=== PATIENT | female | born 2000 | race Caucasian/White ===

== ENCOUNTER 2022-08-14 12:17 | Emergency (ER) | payer BC, SELFPAY ==
--- NOTE | 2022-08-14 12:21 | ED.EYEPROB ---
HPI - Eye Problem General Chief complaint: Eye Problems Stated complaint: lt eye infection Time Seen by Provider: 08/14/22 12:21 Source: patient Mode of arrival: ambulatory Limitations: no limitations History of Present Illness HPI Narrative: Luis is a 22-year-old female patient presenting to clinic today with complaints of a possible left eye infection. She reports has swelling and tenderness to the left upper eyelid. No drainage. No visual changes. Related Data Home Medications Medication Instructions Recorded Confirmed No Home Medications 08/14/22 08/14/22 Allergies Allergy/AdvReac Type Severity Reaction Status Date / Time No Known Allergies Allergy Verified 08/14/22 12:39 Review of Systems Review of Systems: Pertinent positives per HPI. Patient denies any fever, chills, rash, headache, visual changes, dizziness, cough, runny nose, sore throat, shortness of breath, chest pain, palpitations, nausea, vomiting, diarrhea, constipation, abdominal pain, or any urinary issues. PMFSH Comments At the time of my signature, I reviewed and agree with the nursing past medical, surgical, social, and family history. There is no relevant family history pertinent to the patient complaint. Exam Narrative: General: Well-developed, well nourished, in no apparent distress Head: Normocephalic, atraumatic Eyes: Pupils equally round and reactive to light bilaterally, EOM intact, sclera and conjunctive clear, no discharge, pustular sore that is tender to the touch with redness and swelling to the external upper inner eyelid Ears: TMs intact and clear, ear canals clear, no drainage, grossly hearing normal. Nose: Nares patent, no discharge, no inflammation, no sinus tenderness. Mouth: Oropharynx without lesions or masses, good dentition, MMM. Neck: Supple, trachea midline, no enlargement of anterior or posterior cervical nodes, no thyroid masses or goiter palpable. Cardio: Regular rate and rhythm, s1 and s2 normal, no murmur appreciated. Resp: Clear to auscultation bilaterally anteriorly and posteriorly, no rhonchi, rales, wheezing or rubs Course Course Emergency Course: Portions of this record may have been created with voice recognition software. Level of Care: Express Care Visit Vital Signs Vital signs: Vital Signs Temperature 36.7 C 08/14/22 12:27 Pulse Rate 81 08/14/22 12:27 Respiratory Rate 20 08/14/22 12:27 Blood Pressure 118/91 H 08/14/22 12:27 Pulse Oximetry 100 08/14/22 12:27 Temperature 36.7 C 08/14/22 12:27 Pulse Rate 81 08/14/22 12:27 Respiratory Rate 20 08/14/22 12:27 Blood Pressure 118/91 H 08/14/22 12:27 Pulse Oximetry 100 08/14/22 12:27 Vital signs reviewed MDM - Eye Problem MDM Narrative Medical decision making narrative: At the time of visit patient is resting comfortably on the exam table. I suspect patient has a external stye. Prescription for a mycin eye ointment was prescribed and discussed use of warm moist compresses. Supportive measures were discussed with the patient she voiced understanding discharge instructions agrees to treatment plan. Differential Diagnosis Differential diagnosis: Likely corneal abrasion, conjunctivitis, periorbital cellulitis, corneal ulcer and other (Scleritis, episcleritis, foreign body in eye, stye, chalazion) Discharge Plan Discharge Clinical Impression: External hordeolum Qualifiers: Laterality: left Eyelid: upper Qualified Code(s): H00.014 - Hordeolum externum left upper eyelid Patient Disposition: Home, Self-Care Condition: Stable Instructions: Antibiotic Form, Annemarie (ED) Additional Instructions: Instill E-Mycin ointment into the left eye 4 times daily Apply warm moist heat to the affected area 4 times daily May take Tylenol/Motrin as needed for pain Follow-up with your PCP in 3-5 days if symptoms persist or sooner if they worsen Go to the emergency room if you develop any worsening of symptoms-high
[2022-08-14 12:27] VITALS: BP 118/91; PULSE 81; RESP 20; TEMP 36.7; O2SAT 100
== END 2022-08-14 12:39 | disposition home or self-care (01) ==
PROVIDERS: Emergency Provider Nurse Practitioner Family; PCP Family Medicine
DX: H00.014 Hordeolum externum left upper eyelid (principal)
CPT/HCPCS: 99213; G0463